=== PATIENT | female | born 1940 | race Caucasian/White ===

== ENCOUNTER → 2016-07-29 | Outpatient (CLI) | payer MEDICARE, BC | END | disposition home or self-care (01) | LOC: PCVCIMAG 09:58 | PROVIDERS: ATTEND Nuclear Medicine Nuclear Cardiology | DX: M79.604 Pain in right leg (principal); M79.605 Pain in left leg | CPT/HCPCS: 93923; 93925; 93924 ==

== ENCOUNTER → 2016-09-09 | Outpatient (CLI) | payer MEDICARE, BC | END | disposition home or self-care (01) | LOC: PCVCIMAG 12:41 | PROVIDERS: ATTEND Internal Medicine | DX: I34.0 Nonrheumatic mitral (valve) insufficiency (principal); I34.1 Nonrheumatic mitral (valve) prolapse; I10 Essential (primary) hypertension; E78.5 Hyperlipidemia, unspecified; Z79.01 Long term (current) use of anticoagulants | CPT/HCPCS: 80061; 93005; 93306; G0463 ==

== ENCOUNTER → 2017-04-13 | Outpatient (CLI) | payer MEDICARE, BC | END | disposition home or self-care (01) | LOC: PCVCCLINIC 14:48 | PROVIDERS: ATTEND Internal Medicine | DX: I34.0 Nonrheumatic mitral (valve) insufficiency (principal); I73.00 Raynaud's syndrome without gangrene; E78.5 Hyperlipidemia, unspecified; I75.023 Atheroembolism of bilateral lower extremities; Z87.891 Personal history of nicotine dependence; Z79.899 Other long term (current) drug therapy | CPT/HCPCS: 80061; 93005; G0463 ==

== ENCOUNTER → 2017-10-11 | Outpatient (CLI) | payer MEDICARE, BC | END | disposition home or self-care (01) | LOC: PCVCIMAG 13:05 | DX: I08.1 Rheumatic disorders of both mitral and tricuspid valves (principal); E78.5 Hyperlipidemia, unspecified; I10 Essential (primary) hypertension; I73.00 Raynaud's syndrome without gangrene; I75.023 Atheroembolism of bilateral lower extremities; I63.9 Cerebral infarction, unspecified; Z87.891 Personal history of nicotine dependence; Z79.899 Other long term (current) drug therapy | CPT/HCPCS: 80061; 93005; 93306; G0463 ==

== ENCOUNTER → 2018-04-13 | Outpatient (CLI) | payer MEDICARE, BC ==
--- NOTE | 2018-04-13 14:18 | PCVCIMAG ---
APPROVED REPORT Laterality: Bilateral Indications CVA/TIA: Doppler Spectral Velocity Analysis PSV / EDVPSV / EDV ECA (R) 79 / 9 cm/sECA (L) 94 / 8 cm/s dICA (R) 50 / 18 cm/sdICA (L) 80 / 30 cm/s Alison (R) 99 / 31 cm/smICA (L) 89 / 27 cm/s pICA (R) 96 / 26 cm/spICA (L) 66 / 14 cm/s Bulb (R) 86 / 22 cm/sBulb (L) 94 / 24 cm/s dCCA (R) 85 / 23 cm/sdCCA (L) 97 / 24 cm/s mCCA (R) 79 / 16 cm/smCCA (L) 95 / 22 cm/s Vert (R) 83 / 22 cm/sVert (L) 64 / 19 cm/s ICA/CCA 1.16ICA/CCA 0.92 Basic Measurements Blood Pressure: Pulses: Right Left RightLeft Brachial(Sitting) 126/91xaOl401/80mmHgTemporal Real Time B-Mode Imaging Vert. (R)AntegradeVert. (L)Antegrade Findings The right carotid bulb has moderate calcified plaque. The right proximal internal carotid artery shows <40% stenosis. The right common carotid artery shows no significant stenosis. The right external carotid artery shows no significant stenosis. The left carotid bulb has moderate plaque. The left proximal internal carotid artery shows <40% stenosis. The left common carotid artery shows no significant stenosis. The left external carotid artery shows no significant stenosis. Conclusion 1. Right internal carotid artery stenosis (<40%) 2. Left internal carotid artery stenosis (<40%) 3. Antegrade vertebral flow
== END | disposition home or self-care (01) ==
LOC: PCVCIMAG 13:36
PROVIDERS: ATTEND Internal Medicine
DX: I65.23 Occlusion and stenosis of bilateral carotid arteries (principal); I34.0 Nonrheumatic mitral (valve) insufficiency; E78.5 Hyperlipidemia, unspecified; I10 Essential (primary) hypertension; I73.00 Raynaud's syndrome without gangrene; I75.023 Atheroembolism of bilateral lower extremities; I63.9 Cerebral infarction, unspecified; F32.9 Major depressive disorder, single episode, unspecified; K21.9 Gastro-esophageal reflux disease without esophagitis; M81.0 Age-related osteoporosis without current pathological fracture; Z79.82 Long term (current) use of aspirin; Z87.891 Personal history of nicotine dependence
CPT/HCPCS: 80061; 93005; 93880; G0463

== ENCOUNTER → 2018-10-25 | Outpatient (CLI) | payer MEDICARE, BC ==
--- NOTE | 2018-10-25 10:15 | PCVCIMAG ---
APPROVED REPORT Study performed: 10/25/2018 09:03:09 EXAM: Comprehensive 2D, Doppler, and color-flow Echocardiogram Patient Location: Echo lab Status: routine BSA: 1.57 HR: 58 bpm Rhythm: NSR Other Information Study Quality: Good Risk Factors: Cardiac Risk Factors: HTN, Hyperlipidemia Indications Myxomatous mitral Valve 2D Dimensions IVSd: 10.44 (7-11mm)LVOT Diam: 19.79 (18-24mm) LVDd: 55.47 mm PWd: 8.46 (7-11mm)Ascending Ao: 38.93 (22-36mm) LVDs: 36.76 (25-40mm) Left Atrium: 40.47 (27-40mm) Aortic Root: 32.81 mm LV Single Plane 4CH: 69.29 % LV Single Plane 2CH: 72.81 % Biplane EF: 71.7 % Volumes Left Atrial Volume (Systole) Single Plane 4CH: 81.88 mLSingle Plane 2CH: 57.91 mL LA ESV Index: 56.00 mL/m2 Aortic Valve AoV Peak Darrell.: 1.54 m/s AO Peak Gr.: 9.47 mmHgLVOT Max P.54 mmHg LVOT Max V: 1.18 m/s LINDA Vmax: 2.35 cm2 Mitral Valve E/A Ratio: 1.1 MV Decel. Time: 377.41 ms MV E Max Darrell.: 1.11 m/s MV A Darrell.: 1.04 m/s IVRT: 79.58 ms TDI E/Lateral E': 18.50E/Medial E': 15.86 Medial E' Darrell.: 0.07 m/s Lateral E' Darrell.: 0.06 m/s Pulmonary Vein P Vein S: 0.39 m/sP Vein A: 0.52 m/s P Vein D: 0.53 m/sP Vein A Dur.: 86.5 msec P Vein S/D Ratio: 0.74 Tricuspid Valve TR Peak Darrell.: 2.71 m/s TR Peak Gr.: 29.31 mmHg Left Ventricle The left ventricle is normal size. There is normal LV segmental wall motion. There is normal left ventricular wall thickness. Left ventricular systolic function is normal. The left ventricular ejection fraction is within the normal range. LVEF is 60-65%. The left ventricular diastolic function is normal. Right Ventricle The right ventricle is normal size. The right ventricular systolic function is normal. Atria Left atrium is severely dilated. The right atrium size is normal. Aortic Valve The aortic valve is normal in structure, trileaflet. Trace aortic regurgitation. There is no aortic valvular stenosis. 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 Moderate annular calcification. Moderate to severe mitral regurgitation No evidence of mitral valve stenosis. Tricuspid Valve The tricuspid valve is normal in structure. Trace to mild tricuspid regurgitation. Pulmonary artery pressure is 35 mmHg. Pulmonic Valve The pulmonary valve is normal in structure. There is no pulmonic valvular regurgitation. Great Vessels The aortic root is normal in size. IVC is normal in size and collapses >50% with inspiration. Pericardium There is no pericardial effusion. <Conclusion> Left ventricular systolic function is normal. There is normal LV segmental wall motion. LVEF is 60-65%. Moderate diastolic dysfunction Left atrium is severely dilated. The aortic valve is normal in structure, trileaflet. Trace aortic regurgitation, no stenosis. 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 Moderate annular calcification. Moderately severe to severe mitral regurgitation Trace to mild tricuspid regurgitation. Pulmonary artery pressure of 35 mmHg. There is no pericardial effusion.
== END | disposition home or self-care (01) ==
LOC: PCVCIMAG 08:58
PROVIDERS: ATTEND Internal Medicine
DX: I08.1 Rheumatic disorders of both mitral and tricuspid valves (principal); E78.5 Hyperlipidemia, unspecified; I10 Essential (primary) hypertension; I73.00 Raynaud's syndrome without gangrene; I75.023 Atheroembolism of bilateral lower extremities; I63.9 Cerebral infarction, unspecified; Z79.82 Long term (current) use of aspirin; Z87.891 Personal history of nicotine dependence
CPT/HCPCS: 36415; 80061; 93005; 93306; G0463

== ENCOUNTER → 2019-02-27 | Outpatient (CLI) | payer MEDICARE, BC ==
--- NOTE | 2019-02-27 14:03 | PCVCIMAG ---
APPROVED REPORT Study performed: 02/27/2019 12:39:15 EXAM: Limited 2D, Doppler, and color-flow Echocardiogram Patient Location: Echo lab Status: routine BSA: 1.57 HR: 90 bpmBP: 106/70 mmHg Rhythm: Atrial Fibrillation Other Information Study Quality: Adequate Indications Mitral Valve Disease Mitral Valve Prolapse Atrial Fibrillation Dyspnea mitral regurgitation 2D Dimensions IVSd: 11.39 (7-11mm) LVDd: 46.30 mm PWd: 9.78 (7-11mm)Ascending Ao: 37.35 (22-36mm) LVDs: 32.92 (25-40mm) Left Atrium: 51.40 (27-40mm) Aortic Root: 32.82 mm LV Single Plane 4CH: 44.83 % LV Single Plane 2CH: 50.97 % Biplane EF: 47.6 % Volumes Left Atrial Volume (Systole) Single Plane 4CH: 98.52 mLSingle Plane 2CH: 84.30 mL LA ESV Index: 59.00 mL/m2 Aortic Valve AoV Peak Darrell.: 1.05 m/s AO Peak Gr.: 4.46 mmHg Tricuspid Valve TR Peak Darrell.: 3.07 m/s TR Peak Gr.: 37.73 mmHg Left Ventricle The left ventricle is normal size. There is normal LV segmental wall motion. There is normal left ventricular wall thickness. Left ventricular systolic function is borderline lower limits of normal. LVEF is 50-55%. This study is not technically sufficient to allow evaluation of the LV diastolic function due to atrial fibrillation. Right Ventricle The right ventricle is normal size. The right ventricular systolic function is normal. Atria Left atrium is severely dilated. Right atrium is severely dilated. Aortic Valve The aortic valve is normal in structure. Mild aortic regurgitation. There is no aortic valvular stenosis. 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 Moderate to severe mitral regurgitation No evidence of mitral valve stenosis. Tricuspid Valve The tricuspid valve is normal in structure. Mild to moderate tricuspid regurgitation with PAP of 45 mmHg. Pulmonic Valve The pulmonary valve is normal in structure. There is no pulmonic valvular regurgitation. Great Vessels The aortic root is normal in size. IVC is normal in size and collapses >50% with inspiration. Pericardium There is no pericardial effusion. There is no pleural effusion. <Conclusion> The left ventricle is normal size. LVEF is 50-55%. Left atrium is severely dilated. Right atrium is severely dilated. The aortic valve is normal in structure. Mild aortic regurgitation. 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 Moderate to severe mitral regurgitation The tricuspid valve is normal in structure. Mild to moderate tricuspid regurgitation with PAP of 45 mmHg. The pulmonary valve is normal in structure. There is no pericardial effusion. There is no pleural effusion.
== END | disposition home or self-care (01) ==
LOC: PCVCIMAG 13:00
PROVIDERS: ATTEND Internal Medicine
DX: I08.2 Rheumatic disorders of both aortic and tricuspid valves (principal)
CPT/HCPCS: 36415; 93005; 93308; G0463

== ENCOUNTER → 2019-03-17 | Outpatient (CLI) | payer MEDICARE, BC | END | disposition home or self-care (01) | LOC: PCVCCLINIC 15:16 | PROVIDERS: ATTEND Internal Medicine | DX: I48.21 Permanent atrial fibrillation (principal); I10 Essential (primary) hypertension; I34.0 Nonrheumatic mitral (valve) insufficiency; E78.5 Hyperlipidemia, unspecified; I73.00 Raynaud's syndrome without gangrene; I63.9 Cerebral infarction, unspecified; I75.023 Atheroembolism of bilateral lower extremities; K21.9 Gastro-esophageal reflux disease without esophagitis; I25.10 Atherosclerotic heart disease of native coronary artery without angina pectoris; M81.0 Age-related osteoporosis without current pathological fracture; Z90.09 Acquired absence of other part of head and neck; Z82.49 Family history of ischemic heart disease and other diseases of the circulatory system; Z83.3 Family history of diabetes mellitus; Z80.42 Family history of malignant neoplasm of prostate; Z87.891 Personal history of nicotine dependence; Z88.5 Allergy status to narcotic agent; Z88.2 Allergy status to sulfonamides; Z88.1 Allergy status to other antibiotic agents; Z88.8 Allergy status to other drugs, medicaments and biological substances; Z79.899 Other long term (current) drug therapy | CPT/HCPCS: 93005; G0463 ==